=== PATIENT | female | born 1985 | race Caucasian/White ===

== ENCOUNTER 2016-10-30 16:56 | Inpatient (IN) | payer BC ==
[2016-10-30] MEDS ORDERED: clonazePAM 0.5 MG TAB PO PRN (17:39)
[2016-10-30] MEDS ORDERED: BISACODYL 10 MG SUPP PR PRN (17:47)
[2016-10-30] MEDS ORDERED: POLYETHYLENE GLYCOL 3350 17 GM PKT PO PRN (17:47)
[2016-10-30] MEDS ORDERED: CARBOXYMETHYLCELLULOSE 1% 0.4 ML DROPERETTE EACHEYE PRN (18:18)
--- NOTE | 2016-10-30 18:45 | PDOREHIP ---
Admission IRF-[facility] - Admission - 3 Day Assessment Period Admission Date/Day 1: 10/30/16 Day 2: 10/31/16 Day 3: 11/01/16 - Active Diagnoses Comorbidities and Co-existing Conditions at Admission: 80110. None of the Above - Skin Conditions Unhealed Pressure Ulcer (1 or more/Stage 1 or >)-Admission: 0. No
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
[2016-10-30] MEDS ORDERED: CEFEPIME HCL 2 GM IV SCH (21:00)
[2016-10-30] MEDS: SENNOSIDES 1 TAB PO SCH (21:19)
[2016-10-30] MEDS: ACETAMINOPHEN 325 MG TAB PO PRN (22:23)
[2016-10-30] MEDS: CEFEPIME HCL 2 GM in D5W 100 ML IV SCH (22:23)
[2016-10-30] MEDS: oxyCODONE IR 5 MG TAB PO PRN (23:22)
[2016-10-31] MEDS: ENOXAPARIN 40 MG/0.4 ML SYR SC SCH (08:10)
[2016-10-31] MEDS: SENNOSIDES 1 TAB PO SCH ×2 (08:15→21:44)
[2016-10-31] MEDS: SERTRALINE HCL 100 MG TAB PO SCH (08:15)
[2016-10-31] MEDS: Dextroamphetamine/Amphetamine [Adderall Xr 20 Mg Capsule] 20 MG) PO SCH (08:17)
[2016-10-31] MEDS: CEFEPIME HCL 2 GM in D5W 100 ML IV SCH ×2 (08:34→21:44)
[2016-10-31] MEDS ORDERED: Herbals/Supplements -Info Only PO SCH (09:00)
[2016-10-31] MEDS ORDERED: CONTRACEPTIVE PO SCH ×2 (09:00→19:30)
[2016-10-31 09:12] VITALS: RESP 16
[2016-10-31] MEDS: ONDANSETRON DISINTEGRATING 4 MG TAB PO PRN (09:26)
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
[2016-10-31 18:06] LABS: % IMMATURE GRANULYOCYTES 0.3 % (0.0-1.1); ABSOLUTE IMMATURE GRANULOCYTES 0.03 10^3/uL (0.00-0.10); ADD DIFF? NO; ADD MORPH? NO; ADD SCAN? NO; ATYPICAL LYMPHOCYTE FLAG 0 (0-99); FRAGMENT RBC FLAG 0 (0-99); HEMATOCRIT 35.9 % (38.0-47.0); HEMOGLOBIN 11.6 g/dL (12.6-16.3); LEFT SHIFT FLG 30 (0-99); LIPEMIA HEMOLYSIS FLAG 80 (0-99); MEAN CELL HEMOGLOBIN 29.7 pg (27.9-34.1); MEAN CELL HEMOGLOBIN CONCENTR. 32.3 g/dL (32.4-36.7); MEAN CELL VOLUME 91.8 fL (81.5-99.8); MEAN PLATELET VOLUME 9.7 fL (8.7-11.7); PLATELET CLUMPS FLAG 0 (0-99); PLATELET COUNT 332 10^3/uL (150-400); RED BLOOD CELL COUNT 3.91 10^6/uL (4.18-5.33); RED CELL DISTRIBUTION WIDTH 13.6 % (11.5-15.2)
[2016-10-31 18:13] LABS: ANION GAP 10 mEq/L (8-16); CALCIUM 9.1 mg/dL (8.5-10.4); CARBON DIOXIDE 24 mEq/l (22-31); CHLORIDE 101 mEq/L (97-110); CREATININE 0.7 mg/dL (0.6-1.0); GLOMERULAR FILTRATION RATE > 60; GLUCOSE 96 mg/dL (70-100); POTASSIUM 4.2 mEq/L (3.5-5.2); SODIUM 135 mEq/L (134-144)
[2016-10-31] MEDS: ACETAMINOPHEN 325 MG TAB PO PRN (18:17)
[2016-10-31] MEDS: oxyCODONE IR 5 MG TAB PO PRN (19:42)
[2016-11-01 07:07] VITALS: BP 122/76; PULSE 69; TEMP 98.8; O2SAT 94
[2016-11-01] MEDS: CEFEPIME HCL 2 GM in D5W 100 ML IV SCH (08:40)
[2016-11-01] MEDS: ONDANSETRON DISINTEGRATING 4 MG TAB PO PRN (08:48)
[2016-11-01] MEDS: ENOXAPARIN 40 MG/0.4 ML SYR SC SCH (08:50)
[2016-11-01] MEDS: SENNOSIDES 1 TAB PO SCH (08:50)
[2016-11-01] MEDS: Dextroamphetamine/Amphetamine [Adderall Xr 20 Mg Capsule] 20 MG) PO SCH (08:50)
[2016-11-01] MEDS: ACETAMINOPHEN 325 MG TAB PO PRN ×2 (08:51→16:08)
[2016-11-01] MEDS: SERTRALINE HCL 100 MG TAB PO SCH (08:51)
[2016-11-01] MEDS: oxyCODONE IR 5 MG TAB PO PRN ×4 (08:52→16:09)
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
[2016-11-01] MEDS ORDERED: MAGNESIUM HYDROXIDE 30 ML UDCUP PO PRN (12:41)
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
== END 2016-11-01 16:42 | disposition still patient (30) | DRG 561 ==
LOC: BREH 16:56
PROVIDERS: ADMIT Internal Medicine; ATTEND Internal Medicine
PROC: F08Z4ZZ Home Management Treatment (ICD-10-PCS; principal; 2016-10-30)
PROC: F07M3ZZ Motor Function Treatment of Musculoskeletal System - Whole Body (ICD-10-PCS; principal; 2016-10-30)
DX: S92.311D Displaced fracture of first metatarsal bone, right foot, subsequent encounter for fracture with routine healing (principal); S92.352D Displaced fracture of fifth metatarsal bone, left foot, subsequent encounter for fracture with routine healing; S86.022D Laceration of left Achilles tendon, subsequent encounter; S92.002D Unspecified fracture of left calcaneus, subsequent encounter for fracture with routine healing; K59.00 Constipation, unspecified; F90.9 Attention-deficit hyperactivity disorder, unspecified type; V94 Other and unspecified water transport accidents; Y92.814 Boat as the place of occurrence of the external cause
CPT/HCPCS: 97110-GO; 97116-GP; 97162-GP; 97166-GO; 97530-GO; 97530-GP; 97535-GO; J0692; J1650